=== PATIENT | male | born 1975 | race Caucasian/White ===

== ENCOUNTER 2021-01-23 22:05 | Emergency (ER) | payer OTHER ==
[~2021-01-23] VITALS: Ht 188 cm; Wt 90.7 kg
--- OUTSIDE RECORDS SUMMARY | 2021-01-23 22:08 | XMS ---
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 [facility] has no Care Guidelines for this patient. Hernán VISIT COUNT (12 MO.) 1 JOANNE Sanchez TOTAL 1 NOTE: Visits indicate total known visits. ED/C VISIT TRACKING (12 MO.) 01/23/2021 22:05 JOANNE Gottlieb OR TYPE: Emergency COMPLAINT: - ANKLE INJURY INPATIENT VISIT TRACKING (12 MO.) No inpatient visits to display in this time frame [id number]
== END 2021-01-24 00:17 | disposition short-term general hospital (02) ==
LOC: ED 22:05
PROC: 0SSF3ZZ Reposition Right Ankle Joint, Percutaneous Approach (ICD-10-PCS; principal; 2021-01-23)
DX: S82.831A Other fracture of upper and lower end of right fibula, initial encounter for closed fracture (principal); S93.04XA Dislocation of right ankle joint, initial encounter; W01.0XXA Fall on same level from slipping, tripping and stumbling without subsequent striking against object, initial encounter; Z23 Encounter for immunization; Z20.822 Contact with and (suspected) exposure to COVID-19; F17.200 Nicotine dependence, unspecified, uncomplicated; Z88.0 Allergy status to penicillin
CPT/HCPCS: 27840; 73600; 73610; 90471; 90715; 99152; 99284-25; C9803; J2270; J2405; J2704; J7030; U0003